=== PATIENT | female | born 1945 | race Caucasian/White ===

== ENCOUNTER 2018-05-24 12:28 | Emergency (ER) | payer MEDICAID, MEDICARE, OTHER ==
[~2018-05-24] VITALS: Ht 167.6 cm; Wt 81.6 kg
--- NOTE | 2018-05-24 12:41 | NUR ---
pt placed on heart monitor. HR 82, 147/76, 97% on RA.
[2018-05-24] MEDS ORDERED: ACETAMINOPHEN ES 500 MG TABLET PO ONE (13:00)
[2018-05-24] MEDS ORDERED: ACETAMINOPHEN ES 500 MG TABLET ONE (13:00)
[2018-05-24 13:17] LABS: BASOPHILS % (AUTO) 0.8 % (0.0-2.0); EOSINOPHILS # (AUTO) 0.2 K/uL (0.0-0.7); EOSINOPHILS % (AUTO) 3.7 % (0.0-7.0); HEMATOCRIT 32.9 % (31.2-41.9); HEMOGLOBIN 10.6 g/dL (10.9-14.3); LYMPHOCYTES # (AUTO) 2.2 K/uL (20.0-40.0); LYMPHOCYTES % (AUTO) 37.6 % (20.5-51.5); MEAN CORPUSCULAR HEMOGLOBIN 21.5 uug (24.7-32.8); MEAN CORPUSCULAR HGB CONC 32 g/dL (32.3-35.6); MEAN CORPUSCULAR VOLUME 66.9 fL (75.5-95.3); MONOCYTES # (AUTO) 0.4 K/uL (2.0-10.0); MONOCYTES % (AUTO) 7.6 % (0.0-11.0); NEUTROPHILS # (AUTO) 2.9 K/uL (1.8-8.9); NEUTROPHILS % (AUTO) 50.3 % (38.5-71.5); PLATELET COUNT (AUTO) 243 K/uL (179-408); RED BLOOD CELL COUNT(AUTO) 4.92 MIL/uL (3.63-4.92); WHITE BLOOD COUNT (AUTO) 5.7 K/uL (3.8-11.8)
[2018-05-24 13:26] LABS: CARBON DIOXIDE 25 mmol/L (21-32); CHLORIDE 105 mmol/L (98-107); CREATININE 0.5 mg/dL (0.6-1.3); GLUCOSE 94 mg/dL (74-106); POTASSIUM 4.4 mmol/L (3.5-5.1); UREA NITROGEN, BLOOD 13 mg/dL (7-18)
[2018-05-24 13:32] LABS: ALANINE AMINOTRANSFERASE 24 U/L (14-59); ALKALINE PHOSPHATASE 43 U/L (50-136); ASPARTATE AMINOTRANSFERASE 16 U/L (15-37); BILIRUBIN,DIRECT 0.1 mg/dL (0.0-0.2); BILIRUBIN,TOTAL 0.6 mg/dL (0.2-1.0)
[2018-05-24] MEDS ORDERED: ASPI81TA44 PO (13:40)
[2018-05-24] MEDS ORDERED: LEVO100T10 PO (13:40)
[2018-05-24] MEDS ORDERED: DONE5TAB34 PO (13:40)
[2018-05-24 14:26] VITALS: BP 136/42
== END 2018-05-24 14:32 | disposition home or self-care (01) ==
LOC: ER 12:28
DX: R05 Cough (principal); R07.89 Other chest pain; E03.9 Hypothyroidism, unspecified; Z79.82 Long term (current) use of aspirin; Z79.899 Other long term (current) drug therapy
CPT/HCPCS: 36415; 70030-TC; 71045; 85025; 93005; A4663; A9150

== ENCOUNTER 2021-02-11 12:41 | Inpatient (IN) | payer MEDICARE, OTHER ==
[~2021-02-11] VITALS: Ht 170.2 cm; Wt 81.6 kg
[~2021-02-11 12:41] MED LIST: ASPI81TA44 PO; DONE5TAB34 PO; LEVO100T10 PO
[2021-02-11] MEDS ORDERED: ASPIRIN 81 MG TAB.CHEW PO ONE (13:00)
[2021-02-11] MEDS ORDERED: NITROGLYCERIN 0.4 MG/TAB BOTTLE SL ONE ×2 (13:00→13:10)
[2021-02-11 13:04] LABS: HEMATOCRIT 32.5 % (31.2-41.9); MEAN CORPUSCULAR HEMOGLOBIN 22.2 uug (24.7-32.8); MEAN CORPUSCULAR VOLUME 67.4 fL (75.5-95.3); PLATELET COUNT (AUTO) 251 K/uL (179-408)
[2021-02-11] MEDS ORDERED: ASPIRIN 325 MG TABLET ONE (13:10)
[2021-02-11 13:11] LABS: CREATININE 0.8 mg/dL (0.6-1.3); POTASSIUM 3.9 mmol/L (3.5-5.1)
[2021-02-11] MEDS ORDERED: IOPAMIDOL 15 ML VIAL IT ONE (13:17)
[2021-02-11] MEDS ORDERED: SWABABLE VALVE TRANSFER SET EA MC ONE (13:17)
[2021-02-11] MEDS ORDERED: IOHEXOL 300MG/ML 100 ML INFUS..BTL ONE (13:17)
[2021-02-11] MEDS ORDERED: IV NORMAL SALINE 250 ML IV ONE (13:17)
[2021-02-11 13:19] LABS: BILIRUBIN,DIRECT 0.1 mg/dL (0.0-0.2); BILIRUBIN,TOTAL 0.5 mg/dL (0.2-1.0); TOTAL PROTEIN, SERUM 7.1 g/dL (6.4-8.2)
[2021-02-11 13:34] LABS: *BILIRUBIN,URIN NEGATIVE (NEGATIVE); *BLOOD, URINE 1+ (NEGATIVE); *CLARITY,URINE CLEAR (CLEAR); *COLOR,URINE LIGHT YELLOW (YELLOW); *KETONES,URINE NEGATIVE (NEGATIVE); *UROBILINOGEN,URINE 0.2 E.U./dl (NORMAL); LEUKOCYTE ESTERASE ,URINE NEGATIVE (NEGATIVE); NITRITE, URINE NEGATIVE (NEGATIVE); UGLUCOSE NEGATIVE (NEGATIVE)
--- NOTE | 2021-02-11 14:23 | NUR ---
PT IS IN ROOM #2B. DR AGUIRRE EVALUATED THE PT.
--- NOTE | 2021-02-11 17:30 | NUR ---
REPORT WAS GIVEN TO MS [employer] SERVER DEVELOPER. PT WAS TRANSFERED TO ROOM #317.
[2021-02-11 17:55] VITALS: BP 141/58
[2021-02-11] MEDS ORDERED: ONDANSETRON 4 MG/2 ML VIAL IV PRN (18:00)
[2021-02-11] MEDS ORDERED: MORPHINE SULFATE 2 MG/1 ML DISP.SYRIN IV PRN (18:00)
[2021-02-11] MEDS ORDERED: BISACODYL 10 MG SUPP.RECT RC PRN (18:00)
[2021-02-11] MEDS ORDERED: BISACODYL 10 MG SUPP.RECT RC ONE (18:15)
--- NOTE | 2021-02-11 19:20 | NUR ---
Patient AO x 4, lying in bed resting, is able to state her needs, on room air saturating at 97%, ambulatory and has a steady gait, no acute distress. Call lights within reach, safety measures initiated.
--- NOTE | 2021-02-11 19:45 | NUR ---
Received pt from ER onto floor via wheelchair at 1740. Pt was admitted due to having chest and epigastric pain. Pt lives alone, is a/o x 4, saturating at 98%, normal sinus rhythm on telemetry. Pt is ambulatory with BRP, last BM 02/10/21. Pt has a Right AC 20g intact and patent. Pt on full liquid diet. Pt is not in any acute distress or discomfort, no complaint of pain at this time. Comfort measures provided, call light within reach. Pt is resting in room, Endorsed to electric refrigerator preparer.
[2021-02-11 20:00] VITALS: BP 134/56
[2021-02-11] MEDS ORDERED: DOCUSATE SODIUM 100 MG CAPSULE PO SCH (21:00)
[2021-02-11 21:22] LABS: BACTERIA,URINE NONE SEEN /HPF (NONE SEEN); SQUAMOUS EPITHELIAL CELL,UR FEW /HPF (NONE SEEN); WBC,URINE 0-3 /HPF (0-3)
[2021-02-12] VITALS: BP 124/61
[2021-02-12 04:00] VITALS: BP 147/63
--- NOTE | 2021-02-12 06:34 | NUR ---
Patient slept throughout the night, AO x 4, on room air saturating at 95%, sinus rhythm on tele monitor with 89 bpm, patient is able to walk to bathroom, no acute distress noted, tolerated all medications. No complaints at this time. Call lights within reach, safety measures maintained. Will endorse to am shift for continuity of care.
[2021-02-12 06:39] LABS: HEMATOCRIT 31.9 % (31.2-41.9); MEAN CORPUSCULAR HEMOGLOBIN 21.8 uug (24.7-32.8); MEAN CORPUSCULAR VOLUME 67.6 fL (75.5-95.3); PLATELET COUNT (AUTO) 218 K/uL (179-408)
[2021-02-12] MEDS ORDERED: LEVOTHYROXINE SODIUM 100 MCG TABLET PO SCH (07:00)
[2021-02-12] MEDS ORDERED: PANTOPRAZOLE SODIUM 40 MG TABLET.DR PO SCH (07:00)
[2021-02-12 07:21] LABS: BILIRUBIN,TOTAL 0.7 mg/dL (0.2-1.0); CREATININE 0.8 mg/dL (0.6-1.3); MAGNESIUM 2.1 mg/dL (1.8-2.4); POTASSIUM 4.1 mmol/L (3.5-5.1); TOTAL PROTEIN, SERUM 6.7 g/dL (6.4-8.2)
[2021-02-12 07:32] LABS: THYROID STIMULATING HORMONE 1.568 mIU/mL (0.358-3.740)
--- NOTE | 2021-02-12 08:00 | NUR ---
AWAKE ALERT AND VERBALLY RESPONSIVE ALGERIAN SPEAKING, ORIENTED X3, DENIES PAIN OR DISTRESS. SR ON MONITOR WITH OCCASIONAL PVC"S
[2021-02-12] MEDS: ACETAMINOPHEN 325 MG TABLET PO PRN ×2 (08:32→08:35)
[2021-02-12] MEDS: ASPIRIN EC 81 MG TABLET.DR PO SCH ×2 (08:32→08:35)
[2021-02-12] MEDS: DONEPEZIL 5 MG TABLET PO SCH ×2 (08:32→08:34)
[2021-02-12 11:22] VITALS: BP 110/54
[2021-02-12] MEDS ORDERED: MAGNESIUM CITRATE 296 ML BOTTLE PO ONE (12:00)
--- NOTE | 2021-02-12 15:29 | NUR ---
NO ACUTE CHANGE FROM MORNING ASSESSMENT
[2021-02-12 15:53] VITALS: BP 102/57
--- NOTE | 2021-02-12 18:04 | NUR ---
discharge home stable and instruction given to follow-up with primary doctor
== END 2021-02-12 18:30 | disposition home or self-care (01) | DRG 390 ==
LOC: ER 13:09 → TELE3 17:20
PROVIDERS: ADMIT Internal Medicine; ATTEND Internal Medicine
DX: K56.41 Fecal impaction (principal); D50.9 Iron deficiency anemia, unspecified; E03.9 Hypothyroidism, unspecified; E66.9 Obesity, unspecified; Z68.28 Body mass index [BMI] 28.0-28.9, adult; F03.90 Unspecified dementia, unspecified severity, without behavioral disturbance, psychotic disturbance, mood disturbance, and anxiety; F32.A Depression, unspecified; I70.0 Atherosclerosis of aorta; K83.8 Other specified diseases of biliary tract; N20.0 Calculus of kidney; Z79.82 Long term (current) use of aspirin; Z87.891 Personal history of nicotine dependence; D18.03 Hemangioma of intra-abdominal structures
CPT/HCPCS: 36415; 70030-TC; 71045; 76705; 82378; 83550; 83690; 83735; 84100; 84443; 85025; 87086; 93005; 93307; A4663; G0378; J7030; J7050; Q9967

== ENCOUNTER 2023-04-24 20:35 | Inpatient (IN) | payer BC, MEDICAID ==
[~2023-04-24] VITALS: Ht 175.3 cm; Wt 77.1 kg
[2023-04-24 22:01] LABS: BASOPHILS # (AUTO) 0.1 K/UL (0.0-0.2); BASOPHILS % (AUTO) 1.1 % (0.0-2.0); EOSINOPHILS # (AUTO) 0.2 K/uL (0.0-0.7); EOSINOPHILS % (AUTO) 3.2 % (0.0-7.0); HEMATOCRIT 29.1 % (31.2-41.9); HEMOGLOBIN 9.5 g/dL (10.9-14.3); LYMPHOCYTES # (AUTO) 2.7 K/uL (0.8-4.8); LYMPHOCYTES % (AUTO) 35.4 % (20.5-51.5); MEAN CORPUSCULAR HEMOGLOBIN 21.8 uug (24.7-32.8); MEAN CORPUSCULAR HGB CONC 33 g/dL (32.3-35.6); MEAN CORPUSCULAR VOLUME 67.1 fL (75.5-95.3); MONOCYTES # (AUTO) 0.5 K/uL (0.1-1.30); NEUTROPHILS # (AUTO) 4.1 K/uL (1.8-8.9); NEUTROPHILS % (AUTO) 53.3 % (38.5-71.5); PLATELET COUNT (AUTO) 221 K/uL (179-408); RED BLOOD CELL COUNT(AUTO) 4.34 MIL/uL (3.63-4.92); RED CELL DISTRIBUTION WIDTH 15.7 % (12.3-17.7); WHITE BLOOD COUNT (AUTO) 7.6 K/uL (3.8-11.8)
[2023-04-24 22:26] LABS: DIFFERENTIAL COMMENT 1
[2023-04-24 22:33] LABS: ALANINE AMINOTRANSFERASE 106 U/L (14-59); ALBUMIN 3.9 g/dL (3.4-5.0); ALKALINE PHOSPHATASE 59 U/L (50-136); ASPARTATE AMINOTRANSFERASE 54 U/L (15-37); BILIRUBIN,DIRECT 0.1 mg/dL (0.0-0.2); BILIRUBIN,TOTAL 0.4 mg/dL (0.2-1.0); CALCIUM 8.7 mg/dL (8.5-10.1); CARBON DIOXIDE 24 mmol/L (21-32); CHLORIDE 107 mmol/L (98-107); CREATININE 0.8 mg/dL (0.6-1.3); GLUCOSE 107 mg/dL (74-106); LIPASE 22 U/L (16-77); POTASSIUM 4.4 mmol/L (3.5-5.1); SODIUM SERUM 140 mmol/L (136-145); UREA NITROGEN, BLOOD 23 mg/dL (7-18)
[2023-04-24 22:35] LABS: *BILIRUBIN,URIN NEGATIVE (NEGATIVE); *BLOOD, URINE 2+ (NEGATIVE); *COLOR,URINE YELLOW (YELLOW); *KETONES,URINE NEGATIVE (NEGATIVE); *PROTEIN,URINE 1+ (NEGATIVE); *UROBILINOGEN,URINE 0.2 E.U./dl (NORMAL); LEUKOCYTE ESTERASE ,URINE 1+ (NEGATIVE); NITRITE, URINE NEGATIVE (NEGATIVE); PH,URINE 5.5 (5.0-8.0); UGLUCOSE NEGATIVE (NEGATIVE)
[2023-04-24 22:36] LABS: *CLARITY,URINE SLIGHTLY HAZY (CLEAR)
[2023-04-24 22:50] LABS: BACTERIA,URINE MODERATE /HPF (NONE SEEN); SQUAMOUS EPITHELIAL CELL,UR FEW /HPF (NONE SEEN)
[2023-04-24 23:19] LABS: EOSINOPHILS % (MANUAL) 4 % (0-8); LYMPHOCYTES % (MANUAL) 39 % (20-40); MONOCYTES % (MANUAL) 5 % (2-10); NEUTROPHILS % (MANUAL) 52 % (42-75); PLATELET ESTIMATE ADEQUATE
[2023-04-24 23:20] LABS: ANISOCYTOSIS 1+; HYPOCHROMASIA 2+
[2023-04-25] MEDS ORDERED: CEFTRIAXONE 1 G in IV DEXTROSE 5% 50 ML IV ONE ×2
[2023-04-25] MEDS ORDERED: PITA2TAB PO (00:06)
[2023-04-25] MEDS ORDERED: LOSA50TA39 PO (00:06)
[2023-04-25] MEDS ORDERED: METO-357 PO (00:06)
[2023-04-25] MEDS ORDERED: RIVA20TA PO (00:06)
[2023-04-25] MEDS ORDERED: ERGO500040 PO (00:06)
[2023-04-25] MEDS ORDERED: CEFTRIAXONE /D5W 50ML IVPB **ER PYXIS IV ONE (00:12)
[2023-04-25] MEDS ORDERED: ACETAMINOPHEN 325 MG TABLET PO PRN (01:15)
[2023-04-25] MEDS ORDERED: ONDANSETRON 4 MG/2 ML VIAL IV PRN (01:15)
[2023-04-25] MEDS: IV NS 1000 ML 1,000 ML IV PRN ×2 (01:52→23:42)
[2023-04-25] MEDS ORDERED: ENOXAPARIN SODIUM 40 MG/0.4 ML DISP.SYRIN SQ SCH (02:07)
[2023-04-25 02:20] VITALS: BP 138/79; TEMP 98.2; O2SAT 96
[2023-04-25 04:03] VITALS: BP 107/68; TEMP 97.6; O2SAT 93
[2023-04-25] MEDS ORDERED: MAGNESIUM HYDROXIDE 30 ML LIQUID UDC PO PRN (06:30)
[2023-04-25 07:51] LABS: BASOPHILS # (AUTO) 0.1 K/UL (0.0-0.2); BASOPHILS % (AUTO) 0.8 % (0.0-2.0); EOSINOPHILS # (AUTO) 0.3 K/uL (0.0-0.7); EOSINOPHILS % (AUTO) 3.9 % (0.0-7.0); HEMATOCRIT 28.2 % (31.2-41.9); HEMOGLOBIN 9.2 g/dL (10.9-14.3); LYMPHOCYTES # (AUTO) 2.8 K/uL (0.8-4.8); LYMPHOCYTES % (AUTO) 39.9 % (20.5-51.5); MEAN CORPUSCULAR HEMOGLOBIN 22.1 uug (24.7-32.8); MEAN CORPUSCULAR HGB CONC 33 g/dL (32.3-35.6); MEAN CORPUSCULAR VOLUME 67.6 fL (75.5-95.3); MONOCYTES # (AUTO) 0.5 K/uL (0.1-1.30); MONOCYTES % (AUTO) 7.1 % (0.0-11.0); NEUTROPHILS # (AUTO) 3.4 K/uL (1.8-8.9); NEUTROPHILS % (AUTO) 48.3 % (38.5-71.5); PLATELET COUNT (AUTO) 205 K/uL (179-408); RED BLOOD CELL COUNT(AUTO) 4.17 MIL/uL (3.63-4.92); RED CELL DISTRIBUTION WIDTH 15.4 % (12.3-17.7)
[2023-04-25 08:03] LABS: DIFFERENTIAL COMMENT 1
[2023-04-25 08:09] LABS: CALCIUM 8.6 mg/dL (8.5-10.1); CARBON DIOXIDE 25 mmol/L (21-32); CHLORIDE 110 mmol/L (98-107); CREATININE 0.7 mg/dL (0.6-1.3); GLUCOSE 88 mg/dL (74-106); MAGNESIUM 2.1 mg/dL (1.8-2.4); PHOSPHOROUS 4.6 mg/dL (2.5-4.9); POTASSIUM 3.6 mmol/L (3.5-5.1); SODIUM SERUM 143 mmol/L (136-145); UREA NITROGEN, BLOOD 19 mg/dL (7-18)
[2023-04-25] MEDS: DOCUSATE SODIUM 100 MG CAPSULE PO SCH (08:12)
[2023-04-25 12:10] VITALS: BP 103/45; TEMP 99; O2SAT 93
[2023-04-25 16:03] VITALS: BP 118/68; TEMP 98.4; O2SAT 95
[2023-04-25 18:28] LABS: IRON, SERUM 29 ug/dL (50-175)
[2023-04-25] MEDS: CEFTRIAXONE 1 G in IV DEXTROSE 5% 50 ML IV SCH (20:38)
[2023-04-25 20:56] VITALS: BP 130/68; TEMP 98.6; O2SAT 96
[2023-04-25] MEDS: QUETIAPINE FUMARATE 25 MG TABLET PO PRN (22:14)
[2023-04-25 23:08] VITALS: BP 136/59; TEMP 97.6; O2SAT 96
[2023-04-26 05:06] VITALS: BP 141/73; TEMP 98.4; O2SAT 92
[2023-04-26] MEDS: LEVOTHYROXINE SODIUM 100 MCG TABLET PO SCH (06:12)
[2023-04-26 07:35] LABS: BASOPHILS # (AUTO) 0.1 K/UL (0.0-0.2); BASOPHILS % (AUTO) 1.1 % (0.0-2.0); EOSINOPHILS # (AUTO) 0.3 K/uL (0.0-0.7); EOSINOPHILS % (AUTO) 4.4 % (0.0-7.0); HEMATOCRIT 27.9 % (31.2-41.9); LYMPHOCYTES # (AUTO) 2.7 K/uL (0.8-4.8); LYMPHOCYTES % (AUTO) 42.4 % (20.5-51.5); MEAN CORPUSCULAR HEMOGLOBIN 21.8 uug (24.7-32.8); MEAN CORPUSCULAR HGB CONC 32 g/dL (32.3-35.6); MEAN CORPUSCULAR VOLUME 67.7 fL (75.5-95.3); MONOCYTES # (AUTO) 0.5 K/uL (0.1-1.30); MONOCYTES % (AUTO) 7.9 % (0.0-11.0); NEUTROPHILS # (AUTO) 2.8 K/uL (1.8-8.9); NEUTROPHILS % (AUTO) 44.2 % (38.5-71.5); PLATELET COUNT (AUTO) 189 K/uL (179-408); RED BLOOD CELL COUNT(AUTO) 4.12 MIL/uL (3.63-4.92); RED CELL DISTRIBUTION WIDTH 16.1 % (12.3-17.7); WHITE BLOOD COUNT (AUTO) 6.3 K/uL (3.8-11.8)
[2023-04-26 07:44] LABS: THYROID STIMULATING HORMONE 2.215 mIU/mL (0.358-3.740)
[2023-04-26 07:45] LABS: DIFFERENTIAL COMMENT 1
[2023-04-26 07:55] LABS: AMMONIA 11 umol/L (11-32)
[2023-04-26 08:13] LABS: ALANINE AMINOTRANSFERASE 81 U/L (14-59); ALBUMIN 3.4 g/dL (3.4-5.0); ALKALINE PHOSPHATASE 46 U/L (50-136); ASPARTATE AMINOTRANSFERASE 28 U/L (15-37); BILIRUBIN,TOTAL 0.7 mg/dL (0.2-1.0); CALCIUM 8.2 mg/dL (8.5-10.1); CARBON DIOXIDE 23 mmol/L (21-32); CHLORIDE 111 mmol/L (98-107); CHOLESTEROL 124 mg/dL (<200); CREATININE 0.7 mg/dL (0.6-1.3); GLUCOSE 92 mg/dL (74-106); HDL CHOLESTEROL 31 mg/dL (40-60); MAGNESIUM 1.9 mg/dL (1.8-2.4); NT-PRO BNP 3910 pg/mL (0-125); PHOSPHOROUS 4.2 mg/dL (2.5-4.9); POTASSIUM 3.5 mmol/L (3.5-5.1); SODIUM SERUM 145 mmol/L (136-145); TOTAL PROTEIN, SERUM 6.2 g/dL (6.4-8.2); TRIGLYCERIDES 71 MG/DL (30-150); UREA NITROGEN, BLOOD 15 mg/dL (7-18)
[2023-04-26] MEDS ORDERED: Medication Not On Formulary EA (Rivaroxaban (Xarelto) 1 TAB) PO SCH (09:00)
[2023-04-26] MEDS: QUETIAPINE FUMARATE 25 MG TABLET PO PRN ×2 (09:53→20:22)
[2023-04-26] MEDS: DOCUSATE SODIUM 100 MG CAPSULE PO SCH (09:53)
[2023-04-26] MEDS: RIVAROXABAN 10 MG TABLET PO SCH (09:57)
[2023-04-26 11:26] VITALS: BP 135/66; TEMP 98.2; O2SAT 94
[2023-04-26] MEDS ORDERED: CYANOCOBALAMIN 1000 MCG/ML VIAL IM ONE (12:30)
[2023-04-26 15:48] VITALS: BP 147/64; TEMP 97.8; O2SAT 98
[2023-04-26 20:00] VITALS: BP 142/65; TEMP 97.7; O2SAT 93
[2023-04-26] MEDS: CEFTRIAXONE 1 G in IV DEXTROSE 5% 50 ML IV SCH (20:15)
[2023-04-26] MEDS: IV NS 1000 ML 1,000 ML IV PRN (23:46)
[2023-04-27 04:00] VITALS: TEMP 97.6; TEMP 98.9
[2023-04-27] MEDS: LEVOTHYROXINE SODIUM 100 MCG TABLET PO SCH (06:12)
[2023-04-27 08:00] VITALS: BP 144/65; TEMP 98; O2SAT 92
[2023-04-27] MEDS: DOCUSATE SODIUM 100 MG CAPSULE PO SCH (08:53)
[2023-04-27] MEDS: RIVAROXABAN 10 MG TABLET PO SCH (08:55)
[2023-04-27] MEDS ORDERED: FERROUS SULFATE 325 MG TABEC PO SCH (09:00)
[2023-04-27] MEDS ORDERED: CYANOCOBALAMIN 1,000 MCG TABLET PO SCH (09:00)
[2023-04-27] MEDS ORDERED: QUET25TA36 PO (10:39)
[2023-04-27] MEDS ORDERED: CYAN-51 PO (10:39)
[2023-04-27] MEDS ORDERED: RIVA10TA PO (10:39)
[2023-04-27] MEDS ORDERED: NITR100C11 PO (10:39)
[2023-04-27] MEDS ORDERED: DOCU-141 PO (10:39)
[2023-04-27] MEDS ORDERED: FERR325T28 PO (10:39)
== END 2023-04-27 12:20 | disposition home health service (06) | DRG 871 ==
LOC: ER 20:48 → TELE3 04-25 01:41 → MEDSURG3 04-26 09:10
PROVIDERS: ADMIT Nurse Practitioner Acute Care; ATTEND Internal Medicine
DX: A41.9 Sepsis, unspecified organism (principal); G93.41 Metabolic encephalopathy; N39.0 Urinary tract infection, site not specified; F03.93 Unspecified dementia, unspecified severity, with mood disturbance; B96.89 Other specified bacterial agents as the cause of diseases classified elsewhere; I48.0 Paroxysmal atrial fibrillation; Z87.440 Personal history of urinary (tract) infections; Z79.01 Long term (current) use of anticoagulants; R00.1 Bradycardia, unspecified; T44.7X5A Adverse effect of beta-adrenoreceptor antagonists, initial encounter; Y92.009 Unspecified place in unspecified non-institutional (private) residence as the place of occurrence of the external cause; E66.9 Obesity, unspecified; F17.210 Nicotine dependence, cigarettes, uncomplicated; Z86.73 Personal history of transient ischemic attack (TIA), and cerebral infarction without residual deficits; E03.9 Hypothyroidism, unspecified; Z79.890 Hormone replacement therapy; D63.8 Anemia in other chronic diseases classified elsewhere; E53.8 Deficiency of other specified B group vitamins; E86.0 Dehydration; K76.9 Liver disease, unspecified; E78.5 Hyperlipidemia, unspecified; Z90.49 Acquired absence of other specified parts of digestive tract; Z98.42 Cataract extraction status, left eye; Z98.41 Cataract extraction status, right eye; Z79.82 Long term (current) use of aspirin; Z91.199 Patient's noncompliance with other medical treatment and regimen due to unspecified reason; R79.89 Other specified abnormal findings of blood chemistry; I11.9 Hypertensive heart disease without heart failure; M54.50 Low back pain, unspecified
CPT/HCPCS: 36415; 70030-TC; 70450; 71045; 82378; 83550; 83605; 83690; 83735; 84100; 84443; 84484; 85025; 85730; 93005; 93307; G0378; J0696; J1650; J3420; J7040

== ENCOUNTER 2024-08-05 14:05 | Emergency (ER) | payer MEDICARE, OTHER ==
[~2024-08-05] VITALS: Ht 175.3 cm; Wt 77.1 kg
[~2024-08-05 14:05] MED LIST changes: -ASPI81TA44 PO; +CYAN-51 PO; +DOCU-141 PO; -DONE5TAB34 PO; +ERGO500040 PO; +FERR325T28 PO; +LOSA50TA39 PO; +NITR100C11 PO; +PITA2TAB PO; +QUET25TA36 PO; +RIVA10TA PO; +RIVA20TA PO
[2024-08-05 14:33] LABS: *BILIRUBIN,URIN 1+ (NEGATIVE); *BLOOD, URINE 2+ (NEGATIVE); *CLARITY,URINE CLEAR (CLEAR); *COLOR,URINE YELLOW (YELLOW); *KETONES,URINE TRACE (NEGATIVE); *PROTEIN,URINE 2+ (NEGATIVE); LEUKOCYTE ESTERASE ,URINE TRACE (NEGATIVE); NITRITE, URINE NEGATIVE (NEGATIVE); UGLUCOSE NEGATIVE (NEGATIVE)
[2024-08-05 14:58] LABS: BACTERIA,URINE FEW /HPF (NONE SEEN); SQUAMOUS EPITHELIAL CELL,UR FEW /HPF (NONE SEEN); WBC,URINE 0-3 /HPF (0-3)
[2024-08-05 16:08] VITALS: BP 129/74; O2SAT 98
== END 2024-08-05 16:08 | disposition home or self-care (01) ==
LOC: ER 14:12
DX: R44.3 Hallucinations, unspecified (principal); F06.8 Other specified mental disorders due to known physiological condition; R35.0 Frequency of micturition; F17.200 Nicotine dependence, unspecified, uncomplicated; F32.A Depression, unspecified; I48.91 Unspecified atrial fibrillation; Z79.01 Long term (current) use of anticoagulants; Z79.899 Other long term (current) drug therapy; Z87.440 Personal history of urinary (tract) infections; Z86.69 Personal history of other diseases of the nervous system and sense organs
CPT/HCPCS: 87086; A4606; A4663